=== PATIENT | female | born 2000 | race Caucasian/White ===

== ENCOUNTER → 2024-07-22 | Outpatient (REF) | payer OTHER ==
[2024-07-23 12:58] LABS: Trichomonas vaginalis (AMP) NOT DETECTED (NEGATIVE)
[2024-07-23 13:23] LABS: GC DNA AMPLIFICATION NEGATIVE (NEGATIVE)
== END ==
LOC: M LAB REF 09:34
PROVIDERS: ATTEND Physician Assistant
DX: N76.0 Acute vaginitis (principal)